=== PATIENT | female | born 1975 ===

== ENCOUNTER → 2019-05-26 | Outpatient (CLI) | payer OTHER ==
[~2019-05-26] MED LIST: ALBU8.5H IH; BENZ200C15 PO; FLU60SYR30 IM ONLY; LEVO1TAB48 PO; ROBC PO; SERT-181 PO; SERT-184 PO
--- NOTE | 2019-05-26 10:56 | EKG ---
FACILITY: [facility] - [place], [place] PATIENT NAME: INDIA DAN : [id number] MR: [id number] V: [id number] EXAM DATE: ORDERING PHYSICIAN: DANIEL RAM TECHNOLOGIST: LELAND AGUILLON Test Reason : Blood Pressure : / mmHG Vent. Rate : 063 BPM Atrial Rate : 063 BPM P-R Int : 108 ms QRS Dur : 076 ms QT Int : 408 ms P-R-T Axes : 024 091 046 degrees QTc Int : 417 ms Sinus rhythm with short NV Otherwise normal ECG No previous ECGs available Referred By: ALLEGRA Confirmed By:
== END ==
LOC: RESP 08:43
PROVIDERS: ATTEND Emergency Medicine
DX: Z02.9 Encounter for administrative examinations, unspecified (principal)

== ENCOUNTER → 2019-05-26 | Outpatient (CLI) | payer OTHER ==
--- NOTE | 2019-05-29 17:18 | RT HOLTER TEST ---
FACILITY: [facility] - [place] PATIENT NAME: INDIA DAN : [id number] MR: [id number] V: [id number] EXAM DATE: ORDERING PHYSICIAN: DANIEL RAM TECHNOLOGIST: CURT Hook-up date: 2019-05-26 09:35:00 Duration: 23:56:00 Test Indications: palpitations Medications: none on diary [id number] QRS complexes 13 Ventricular ectopics which represent <1 % of total QRS comp. 8 Supraventricular ectopics which represent <1 % of total QRS comp. * Paced QRS complexes which represent % of total QRS comp. VENTRICULAR ECTOPY 13 Isolated 0 Bigeminal Cycles 0 Couplets 0 Runs 0 Beats in Runs * Beats LONGEST at * BPM at :: -- * Beats FASTEST at * BPM at :: -- SUPRAVENTRICULAR ECTOPY 8 Isolated 0 Couplets 0 Runs 0 Beats in Runs * Beats LONGEST at * BPM at :: -- * Beats FASTEST at * BPM at :: -- HEART RATES 52 MIN at 04:58:39 2019-05-27 86 AVG 160 MAX at 13:10:25 2019-05-26 LONGEST RR 1.344 secs at 05:29:28 2019-05-27 S-T LEVELS Channel 1 -12.800 mm MIN at 09:35:00 2019-05-26 -12.800 mm MAX at 09:35:00 2019-05-26 Channel 2 -12.800 mm MIN at 09:35:00 2019-05-26 -12.800 mm MAX at 09:35:00 2019-05-26 Channel 3 -12.800 mm MIN at 09:35:00 2019-05-26 -12.800 mm MAX at 09:35:00 2019-05-26 There were no reported symptoms during the test. She was predominantly in a sinus rhythm with rare v entricular ectopy and supraventricular ectopy. Confirmed by SHANAE CORLEY ([id number]) on 05/29/2019 5:15:59 PM Referred By: Overread By: SHANAE CORLEY
== END ==
LOC: RESP 09:13
PROVIDERS: ATTEND Emergency Medicine
DX: R00.2 Palpitations (principal)
CPT/HCPCS: 93225; 93226